=== PATIENT | female | born 1970 | race Hispanic/Latino ===

== ENCOUNTER 2020-02-20 10:06 | Emergency (ER) | payer OTHER ==
[2020-02-20] MEDS ORDERED: ACETAMINOPHEN EXTRA STRENGTH 500 MG TABLET ONE (12:30)
[2020-02-20] MEDS ORDERED: LIDOCAINE 5% TOPICAL PATCH TP ONE (12:57)
== END 2020-02-20 14:05 | disposition home or self-care (01) ==
LOC: EDH 10:06
DX: S50.811A Abrasion of right forearm, initial encounter (principal); M25.511 Pain in right shoulder; E11.9 Type 2 diabetes mellitus without complications; Z88.8 Allergy status to other drugs, medicaments and biological substances; V49.40XA Driver injured in collision with unspecified motor vehicles in traffic accident, initial encounter; Y93.89 Activity, other specified; Y92.488 Other paved roadways as the place of occurrence of the external cause; Y99.8 Other external cause status
CPT/HCPCS: 73030; 73090

== ENCOUNTER 2024-04-08 10:41 | Emergency (ER) | payer BC ==
[~2024-04-08] VITALS: Ht 165.1 cm; Wt 90.7 kg
[2024-04-08 11:39] LABS: BASOPHILS # (AUTO) 0.06 K/uL (0.00-0.20); BASOPHILS % (AUTO) 0.6 % (0.0-5.0); EOSINOPHILS # (AUTO) 0.18 K/uL (0.00-0.70); EOSINOPHILS % (AUTO) 1.7 % (0.0-8.0); HEMATOCRIT 43.1 % (36-48); IMMATURE GRANULOCYTE ABSOLUTE 0.07 K/uL (0-1); LYMPHOCYTES # (AUTO) 2.4 K/uL (1.0-4.8); LYMPHOCYTES % (AUTO) 22.6 % (21.0-51.0); MEAN CORPUSCULAR HEMOGLOBIN 28.8 pg (27.0-33.0); MEAN CORPUSCULAR HGB CONC 31.6 g/dL (32.0-36.0); MEAN CORPUSCULAR VOLUME 91.3 fL (79-99); MONOCYTES # (AUTO) 0.5 K/uL (0.1-1.0); MONOCYTES % (AUTO) 5.1 % (3.0-13.0); NEUTROPHILS # (AUTO) 7.3 K/uL (1.8-7.7); NEUTROPHILS % (AUTO) 69.3 % (40.0-77.0); PLATELET COUNT (AUTO) 184 K/uL (130-400); RED BLOOD CELL COUNT(AUTO) 4.72 MIL/uL (4.00-5.50); RED CELL DISTRIBUTION WIDTH 13.2 % (11.0-15.5); WHITE BLOOD COUNT (AUTO) 10.5 K/uL (4.8-10.8)
[2024-04-08 11:47] LABS: CREATININE 0.7 mg/dL (0.5-1.0); POTASSIUM 4.2 mmol/L (3.5-5.1)
[2024-04-08 12:04] LABS: B-TYPE NATRIURETIC PEPTIDE < 5 pg/mL (0-100)
[2024-04-08 12:12] LABS: APPEARANCE,URINE TURBID (CLEAR); BILIRUBIN,URINE NEGATIVE (NEGATIVE); COLOR,URINE LIGHT-ORANGE (YELLOW); GLUCOSE, URINE (UA) >=1000 mg/dL (NEGATIVE); KETONES,URINE NEGATIVE (NEGATIVE); LEUKOCYTE ESTERASE ,URINE 250 Leu/uL (NEGATIVE); NITRATE,URINE NEGATIVE (NEGATIVE); OCCULT BLOOD,URINE NEGATIVE (NEGATIVE); PROTEIN,URINE NEGATIVE (NEGATIVE); UROBILINOGEN,URINE 0.2 mg/dL (0.2-1.0)
[2024-04-08 12:13] LABS: ADD UA MICROSCOPIC YES
--- NOTE | 2024-04-08 12:20 | HMCIMG ---
CHEST 1VW HISTORY: Chest pain COMPARISON: None FINDINGS: A frontal projection of the chest was obtained. No acute pulmonary infiltrates is seen. The heart is normal in size. Prominent interstitial markings are seen. No evidence of aortic calcification is seen. IMPRESSION: 1. No acute pulmonary infiltrate is seen.
[2024-04-08 12:21] LABS: BACTERIA,URINE RARE /HPF (None Seen); MUCUS,URINE MOD LPF (None Seen); RBC,URINE 26-50 /HPF (0-1); SQUAMOUS EPITHELIAL CELL,UR MANY /HPF (0-2)
--- NOTE | 2024-04-08 12:30 | EKG ---
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
--- NOTE | 2024-04-08 14:07 | ERN ---
General Chief Complaint: Chest Pain Stated Complaint: SOB Time Seen by MD: 10:43 Time Seen by Midlevel: 10:43 Source: patient History of Present Illness Initial Comments Patient is a 53-year-old female with a past medical history of hyperlipidemia and type 2 diabetes presenting for evaluation of left-sided chest pain that has been ongoing since yesterday. The chest pain is described as a pressure and is worse with certain movements. She thought the pain would go away on its own y esterday but when it did and she decided to report to the ER today. She specifically denies any nausea, vomiting, shortness for breath, or any other symptoms at this time. Allergies: Coded Allergies: liraglutide (Unverified Allergy, Unknown, 02/20/20) Past Medical History Past Medical History: Anxiety, Diabetes-Type II, Gallstones Past Surgical History: None ROS Dictation CONSTITUTIONAL: Negative except for HPI HEAD/FACE: Negative except for HPI EENT: Negative except for HPI RESPIRATORY: Negative except for HPI GASTROINTESTINAL/ABDOMINAL: Negative except for HPI GENITOURINARY: Negative except for HPI MUSCULOSKELETAL: Negative except for HPI INTEGUMENTARY: Negative except for HPI NEUROLOGICAL/PSYCH: Negative except for HPI HEMATOLOGIC/LYMPHATIC: Negative except for HPI All Systems Negative, Except as noted above. 13 point review of systems assessed and all negative except for above. Physical Exam Physical Exam Dictation Vital Signs reviewed General Appearance: Alert, oriented x 3, no acute distress, well developed, nourished. Head and Face: non-traumatic. Eyes: PERRL, pink conjunctivas, eyelid no trauma, anterior chamber with arcus senilis. Ears: Pinnas intact and no signs of trauma or erythema ear canals clear and no discharge TM no erythema Nose: No discharge, no bleeding. Oropharynx: Mouth normal, tongue pink, pharynx clear,no erythema, tonsils no exudates, no abscesses noted, mucous membrane moist Neck: Supple, non-tender, no thyromegaly, no masses, no JVD, no bruits Breast:Deferred Chest:No tenderness, no crepitus, no paradoxical movement, no retractions Lungs:Clear, well-ventilated, symmetric, no rales, no wheezing, no rhonchi, no stridor, good breath sounds bilaterally Heart: Regular rate, regular rhythm, no murmur, no gallops Vascular: no peripheral edema, Abdomen: Soft, positive bowel sounds, nondistended, no guarding, nontender, no rebound, no masses no hepatomegaly, no splenomegaly, no Nelson's sign, no hernias. Rectal: Deferred Genital: Deferred Neurological: Normal speech, motor function intact, sensory function intact Musculoskeletal: Neck nontender, full range of motion, back nontender, full range of motion, Extremities: nontender, full range of motion Skin: Color pink, dry, no turgor, no rash, no lacerations, no abrasions, no contusions. Lymphatic: Deferred Results Laboratory and Microbiology Lab and Micro Result Laboratory Tests Test 04/08/24 11:27 04/08/24 11:54 White Blood Count 10.5 K/uL (4.8-10.8) Red Blood Count 4.72 MIL/uL (4.00-5.50) Hemoglobin 13.6 g/dL (12.0-16.0) Hematocrit 43.1 % (36-48) Mean Corpuscular Volume 91.3 fL (79-99) Mean Corpuscular Hemoglobin 28.8 pg (27.0-33.0) Mean Corpuscular Hemoglobin Concent 31.6 g/dL (32.0-36.0) L Red Cell Distribution Width 13.2 % (11.0-15.5) Platelet Count 184 K/uL (130-400) Mean Platelet Volume 12.9 fL (7.5-10.5) H Immature Granulocyte % (Auto) 0.7 % (0-1) Neutrophils (%) (Auto) 69.3 % (40.0-77.0) Lymphocytes (%) (Auto) 22.6 % (21.0-51.0) Monocytes (%) (Auto) 5.1 % (3.0-13.0) Eosinophils (%) (Auto) 1.7 % (0.0-8.0) Basophils (%) (Auto) 0.6 % (0.0-5.0) Neutrophils # (Auto) 7.3 K/uL (1.8-7.7) Lymphocytes # (Auto) 2.4 K/uL (1.0-4.8) Monocytes # (Auto) 0.5 K/uL (0.1-1.0) Eosinophils # (Auto) 0.18 K/uL (0.00-0.70) Basophils # (Auto) 0.06 K/uL (0.00-0.20) Absolute Immature Granulocyte (auto 0.07 K/uL (0-1) Nucleated Red Blood Cells 0.0 % (0.0-0.19) Urine Color LIGHT-ORANGE (YELLOW) Urine Appearance TURBID (CLEAR) Urine pH 5.0 (5.0-8.0) Urine Specific [place] 1.036 (1.001-1.031) Urine Protein NEGATIVE mg/dL (NEGATIVE) Urine Glucose (UA) >=1000 mg/dL (NEGATIVE) H Urine Ketones NEGATIVE mg/dL (NEGATIVE) Urine Occult Blood NEGATIVE (NEGATIVE) Urine Nitrate NEGATIVE (NEGATIVE) Urine Bilirubin NEGATIVE mg/dL (NEGATIVE) Urine Urobilinogen 0.2 mg/dL (0.2-1.0) Urine Leukocyte Esterase 250 [place]/uL (NEGATIVE) H Urine RBC 26-50 /HPF (0-1) H Urine WBC 11-25 /HPF (0-1) H Urine Squamous Epithelial Cells MANY /HPF (0-2) Urine Amorphous Crystals (Auto) FEW /LPF (None Seen) Urine Bacteria RARE /HPF (None Seen) Sodium Level 137 mmol/L (136-145) Potassium Level 4.2 mmol/L (3.5-5.1) Chloride Level 100 mmol/L (101-111) L Carbon Dioxide Level 28 mmol/L (21-32) Blood Urea Nitrogen 24 mg/dL (7-18) H Creatinine 0.7 mg/dL (0.5-1.0) Glomerular Filtration Rate Calc 104 mL/min (>90) Random Glucose 159 mg/dL (70-105) H Total Calcium 9.4 mg/dL (8.5-10.1) Total Creatine Kinase 114 U/L (21-232) Troponin I High Sensitivity 5 ng/L (4-50) B-Type Natriuretic Peptide < 5 pg/mL (0-100) Troponin I < 0.05 ng/mL (0.00-0.05) Labs Reviewed?: Yes EKG/XRAY/US/CT/MRI EKG Comment Date: April 08, 2024 Time: 10:46 a.m. Ventricular rate: 86 beats per minute SD interval: 200 QRS duration: 84 QT/QTc: 375/448 EKG interpretation: Normal sinus rhythm with a ventricular rate of 86 beats per minute, no ST elevations, no bundle branch blocks Reviewed by ED Attending ROZ MDM: Patient is a 53-year-old female with a past medical history of anxiety on escitalopram, hyperlipidemia and type 2 diabetes presenting for evaluation of left-sided chest pain that has been ongoing since yesterday. The chest pain is described as a pressure and is worse with certain movements. She thought the pain would go away on its own yesterday but when it did and she decided to report to the ER today. She specifically denies any nausea, vomiting, shortness of breath, or any other symptoms at this time. On physical examination patient is in no acute distress. She is in the examination room laying down on her phone. Her vital signs are stable. She was nontoxic appearing. Her CBC is unremarkable. Her chemistries unremarkable. Her cardiac enzymes are negative. Her EKG does not show any STEMI or bundle branch blocks. Her chest x-ray shows no acute abnormality. Her 2nd troponin was also negative. Patient will need to follow up with Cardiology outpatient. Patient is stable for discharge Differential diagnosis: Acute coronary syndrome, anxiety, noncardiac chest bina n, musculoskeletal pain, costochondritis There are no social concerns with this patient. Prescription drug management Prescriptions will include: Macrobid Medical management and examination interpretation discussions were had by me with other qualified healthcare professionals as indicated for the patient's care. ED Course Orders Procedure Category Date Status Time Vital Signs Per CPOE 04/08/24 Transmitted Routine 11: B-Type Natriuretic LAB 04/08/24 Complete Peptide 11: Chest 1vw RAD 04/08/24 Resulted 11:01 12 Lead Ekg Tracing- EKG 04/08/24 Resulted Technical 11: Oxygen By Nc/Pulse Ox CPOE 04/08/24 Transmitted 11:01 Maintain Iv CPOE 04/08/24 Transmitted 11:01 Iv Insertion CPOE 04/08/24 Transmitted 11:01 Cardiac Monitoring CPOE 04/08/24 Transmitted 11:01 Pulse Oximetry With CPOE 04/08/24 Transmitted Vs And Prn 11:01 Cbc With Differential LAB 04/08/24 Complete 11:01 Activity: Br W/Brp CPOE 04/08/24 Transmitted With Assist 11:01 Creatine Kinase, Total LAB 04/08/24 Complete 11:01 Urinalysis Profile LAB 04/08/24 Complete 11: Troponin Poc Order LAB 04/08/24 Complete Only 11:01 Bedside Troponin-I LAB.ER 04/08/24 In Process (Poc) 11:01 Basic Metabolic Panel LAB 04/08/24 Complete 11:01 Troponin I High LAB 04/08/24 Complete Sensitivity 11:19 Culture Urine ASAD 04/08/24 In Process 12:13 Troponin I High LAB 04/08/24 In Process Sensitivity 13:15 Vital Signs Date Time Temp Pulse Resp B/P (MAP) Pulse Ox O2 Delivery O2 Flow Rate FiO2 04/08/24 13:13 98.2 89 16 107/50 97 Room Air* 0 21 04/08/24 11:20 98.2 89 16 131/68 98 Room Air* 0 21 04/08/24 10:59 97.9 91 16 126/75 97 Room Air 0 HEART Score Response (Comments) Value History: Low suspicion (0) 0 EKG: Normal 0 Age: 45-65yrs (+1) 1 Risk Factors: 1-2 risk factors (+1) 1 Initial Troponin: Normal limit (0) 0 HEART Score Risk: Low Risk for MACE (1-3) Total 2 DX & DISP Disposition: Discharge Departure Impression: Primary Impression: Non-cardiac chest pain Additional Impression: Urinary tract infection Condition: Stable Additional Instructions: Your blood work today is unremarkable. Your cardiac enzymes are negative. Your EKG does not show any evidence of a heart attack. Your chest x-ray does not show any abnormality. You will need to follow up with your primary care provider for a possible referral to Cardiology. Referrals: LINCOLN BEJARANO MD (PCP) MARTY GRAMAJO II, MD Time of Disposition: 13:57 I have reviewed the case, and I agree with, Diagnosis and Plan I performed the substantive portion of the visit. I have reviewed and personally made and approve the management plan that is documented in the note by myself or the [facility]. I acknowledge for responsibility for the patient's management plan. GISSELL NIEVES Apr 08, 2024 14:07
[2024-04-08 14:18] VITALS: BP 110/63; PULSE 79; RESP 16; TEMP 98.2; O2SAT 97
== END 2024-04-08 13:20 | disposition home or self-care (01) ==
LOC: EDH 10:41
DX: R07.89 Other chest pain (principal); N39.0 Urinary tract infection, site not specified; E11.9 Type 2 diabetes mellitus without complications; E78.5 Hyperlipidemia, unspecified; F41.9 Anxiety disorder, unspecified; Z88.8 Allergy status to other drugs, medicaments and biological substances
CPT/HCPCS: 36415; 71045; 80048; 81001; 82550; 83880; 84484; 85025; 87086; 93005